=== PATIENT | male | born 1985 | race African-American/Black ===

== ENCOUNTER 2022-03-01 10:36 | Inpatient (IN) | payer OTHER ==
[2022-03-01 12:20] VITALS: BMI 27.8
[2022-03-01] MEDS ORDERED: BISMUTH SUBSALICYLATE 524 MG/30 ML PO PRN (13:48)
[2022-03-01] MEDS ORDERED: IBUPROFEN 400 MG TABLET (FP) PO PRN (13:48)
[2022-03-01] MEDS ORDERED: NALOXONE HCL (KLOXXADO) 8 MG SPRAY NS PRN (13:48)
[2022-03-01] MEDS ORDERED: LOPERAMIDE HCL 2 MG CAPSULE PO PRN (13:48)
[2022-03-01] MEDS ORDERED: DICYCLOMINE HCL 10 MG CAPSULE PO PRN (13:48)
[2022-03-01] MEDS ORDERED: NICOTINE 10 MG CARTRIDGE (INHALER) IH PRN (13:48)
[2022-03-01] MEDS ORDERED: ACETAMINOPHEN 325 MG TABLET (FP) PO PRN ×2 (13:48)
[2022-03-01] MEDS ORDERED: MAGNESIUM HYDROX 2400MG/30ML ORAL SUSPENSION 30 ML CUP PO PRN (13:48)
[2022-03-01] MEDS ORDERED: MAGNESIUM CITRATE 300 ML BOTTLE PO PRN (13:48)
[2022-03-01] MEDS ORDERED: MAG HYDROX/AL HYDROX/SIMETH 30 ML UNIT-DOSE CUP PO PRN (13:48)
[2022-03-01] MEDS ORDERED: BENZOCAINE/MENTHOL (CHLORASEPTIC ) LOZENGE MM PRN (13:48)
[2022-03-01] MEDS ORDERED: LORazepam 1 MG TABLET PO PRN (13:48)
[2022-03-01] MEDS ORDERED: ONDANSETRON *ODT* 4 MG TABLET SL PRN (13:48)
[2022-03-01] MEDS ORDERED: BUPRENORPHINE HCL 150 MCG, BUPRENORPHINE HCL 75 MCG BC PRN (13:48)
[2022-03-01] MEDS ORDERED: IBUPROFEN 600 MG TABLET (FP) PO PRN (13:48)
[2022-03-01] MEDS ORDERED: diazePAM 5 MG TABLET PO PRN (13:48)
[2022-03-01] MEDS ORDERED: BUPRENORPHINE HCL 150 MCG, BUPRENORPHINE HCL 75 MCG BC ONE (14:15)
[2022-03-01] MEDS ORDERED: cloNIDine HCL 0.1 MG TABLET PO ONE (14:15)
[2022-03-01] MEDS: LORazepam 2 MG TABLET PO SCH ×3 (15:11→22:24)
[2022-03-01] MEDS: hydrOXYzine PAMOATE 25 MG CAPSULE (FP) PO SCH ×3 (15:21→22:24)
[2022-03-01] MEDS: PRENATAL VITAMINS W/ FOLIC ACID TABLET (FP) PO SCH (15:44)
[2022-03-01] MEDS: METHOCARBAMOL 500 MG TABLET PO PRN (20:31)
[2022-03-01] MEDS: cloNIDine HCL 0.1 MG TABLET PO PRN (20:31)
[2022-03-01] MEDS: THIAMINE HCL 100 MG TABLET (FP) PO SCH (22:24)
[2022-03-01] MEDS: MELATONIN 5 MG TABLETS PO SCH (22:24)
[2022-03-02] MEDS ORDERED: BUPRENORPHINE HCL 150 MCG, BUPRENORPHINE HCL 75 MCG BC PRN
[2022-03-02] MEDS: LORazepam 2 MG TABLET PO SCH ×4 (05:38→22:01)
[2022-03-02] MEDS: BUPRENORPHINE HCL 150 MCG, BUPRENORPHINE HCL 75 MCG BC SCH ×2 (05:39→17:49)
[2022-03-02] MEDS: hydrOXYzine PAMOATE 25 MG CAPSULE (FP) PO SCH ×5 (05:39→22:01)
[2022-03-02] MEDS ORDERED: ALBUTEROL SO4 HFA INHALER IH PRN (09:31)
[2022-03-02 10:11] LABS: HEMATOCRIT 37.3 % (35.4-49); HEMOGLOBIN 13.1 GM/dL (11.7-16.9); MCH 29.5 pg (25.7-33.7); MCHC 35.1 g/dl (32.0-35.9); MEAN CELL VOLUME 84.1 fl (80-96); MEAN PLT VOLUME 8.7 fl (7.5-11.1); PLATELET COUNT 165 10^3/uL (134-434); RBC 4.44 M/mm3 (4.00-5.60); RDW 13.1 % (11.9-15.9); WHITE BLOOD COUNT 7.3 K/mm3 (4.0-10.0)
[2022-03-02] MEDS: LORATADINE 10 MG TABLET PO SCH (10:22)
[2022-03-02] MEDS: PRENATAL VITAMINS W/ FOLIC ACID TABLET (FP) PO SCH (10:22)
[2022-03-02] MEDS: cloNIDine HCL 0.1 MG TABLET PO PRN (10:23)
[2022-03-02] MEDS: METHOCARBAMOL 500 MG TABLET PO PRN ×2 (10:23→17:49)
[2022-03-02 10:28] LABS: ALBUMIN 3.4 g/dl (3.4-5.0); CALCIUM 8.8 mg/dL (8.5-10.1)
[2022-03-02 10:29] LABS: BLOOD UREA NITROGEN 10.9 mg/dL (7-18)
[2022-03-02 10:32] LABS: TOT PROT 6.3 g/dl (6.4-8.2)
[2022-03-02 10:33] LABS: BILIRUBIN,TOTAL 0.4 mg/dL (0.2-1)
[2022-03-02] MEDS: THIAMINE HCL 100 MG TABLET (FP) PO SCH (22:01)
[2022-03-02] MEDS: MELATONIN 5 MG TABLETS PO SCH (22:01)
[2022-03-03] MEDS: LORazepam 1 MG TABLET PO SCH ×2 (05:53→10:17)
[2022-03-03] MEDS ORDERED: BUPRENORPHINE HCL 450 MCG FILM BC SCH (06:00)
[2022-03-03] MEDS: hydrOXYzine PAMOATE 25 MG CAPSULE (FP) PO SCH ×2 (06:12→10:16)
[2022-03-03 07:11] VITALS: RESP 18
[2022-03-03 09:31] VITALS: BP 125/69; PULSE 62; TEMP 97.1
[2022-03-03] MEDS: LORATADINE 10 MG TABLET PO SCH (10:16)
[2022-03-03] MEDS: PRENATAL VITAMINS W/ FOLIC ACID TABLET (FP) PO SCH (10:16)
[2022-03-03] MEDS: METHOCARBAMOL 500 MG TABLET PO PRN (10:17)
[2022-03-03] MEDS: cloNIDine HCL 0.1 MG TABLET PO PRN (10:17)
[2022-03-04] MEDS ORDERED: LORazepam 0.5 MG TABLET PO PRN
[2022-03-04] MEDS ORDERED: LORazepam 0.5 MG TABLET PO SCH (05:00)
[2022-03-04] MEDS ORDERED: BUPRENORPHINE/NALOXONE 4 MG/1 MG FILM PACKET SL SCH (06:00)
[2022-03-05] MEDS ORDERED: LORazepam 0.5 MG TABLET PO ONE (05:00)
[2022-03-05] MEDS ORDERED: BUPRENORPHINE/NALOXONE 8 MG/2 MG FILM PACKET SL ONE (06:00)
== END 2022-03-03 11:32 | disposition home or self-care (01) | DRG 773 ==
LOC: YASAS 10:36 → Y6N 14:51
PROVIDERS: ADMIT Allergy & Immunology; ATTEND Surgery
PROC: HZ2ZZZZ Detoxification Services for Substance Abuse Treatment (ICD-10-PCS; principal; 2022-03-01)
DX: F11.23 Opioid dependence with withdrawal (principal); F10.230 Alcohol dependence with withdrawal, uncomplicated; F15.20 Other stimulant dependence, uncomplicated; F17.210 Nicotine dependence, cigarettes, uncomplicated; F19.282 Other psychoactive substance dependence with psychoactive substance-induced sleep disorder; F19.24 Other psychoactive substance dependence with psychoactive substance-induced mood disorder; J45.909 Unspecified asthma, uncomplicated; L80 Vitiligo; Z87.828 Personal history of other (healed) physical injury and trauma
CPT/HCPCS: 36415; 80053; 85027; 86780; C9803-CS; J0735; U0003; U0005